=== PATIENT | female | born 1955 | race Caucasian/White ===

== ENCOUNTER 2017-08-14 19:27 | Inpatient (IN) | payer MEDICAID ==
[~2017-08-14] VITALS: Ht 170.2 cm; Wt 110.2 kg
[2017-08-14 19:27] VITALS: BP 90/65
--- NOTE | 2017-08-14 19:27 | NUR ---
PATIENT BIB BLS TO ER BED 2. Addendum: 08/14/17 at 2051 by MEDDCV PATIENT BIB ALS TO ER BED 2.
--- NOTE | 2017-08-14 19:30 | NUR ---
PER [facility] [address], [place] [address] WILL FILE APS REPORT.
--- NOTE | 2017-08-14 19:31 | NUR ---
62Y/F BIB ALS C/O N/V/D X3 DAYS. WAS GIVEN 4MG PO ZOFRAN WITH MILD RELIEF. [place] [address] WILL FILE APS REPORT. MAIAR LOWER LEG PITTING EDEMA 3+, DRY SCALEY SKIN ON MAIRA LOWER LEGS, ULCER ON LEFT FOOT, CLOSED ULCER ON LOWER LEFT CALF, PRESSURE ULCER ON SACRUM AREA; AAOX4 WITH EVEN AND STEADY GAIT; PATIENT STATES PAIN OF 0/10 AT THIS TIME; VSS; PATIENT POSITIONED FOR COMFORT; HOB ELEVATED; BEDRAILS UP X2; BED DOWN. ER MD MADE AWARE OF PT STATUS.
[2017-08-14] MEDS ORDERED: VANCOMYCIN 1,000 MG in DEXTROSE 5% 250 ML IV ONE (19:55)
[2017-08-14] MEDS ORDERED: NACL 0.9% 3,000 ML IV ONE (19:55)
[2017-08-14] MEDS ORDERED: CLINDAMYCIN 600 MG in DEXTROSE 5% 50 ML IV ONE (19:55)
[2017-08-14] MEDS ORDERED: PIPERACILLIN/TAZOBACTAM 3.375 GM in DEXTROSE 5% 50 ML IV ONE (19:55)
--- NOTE | 2017-08-14 20:00 | NUR ---
ASSISTED PRIMARY RN WITH CHANGING PATIENT.
[2017-08-14 20:19] LABS: HEMATOCRIT 26.6 % (36-48); HEMOGLOBIN 8.2 g/dL (12.0-16.0); MEAN CORPUSCULAR HEMOGLOBIN 25 pg (27-31); MEAN CORPUSCULAR HGB CONC 31 g/dL (33-37); MEAN CORPUSCULAR VOLUME 82.3 fL (80-94); PLATELET COUNT (AUTO) 103 K/uL (140-450); RED BLOOD CELL COUNT(AUTO) 3.23 MIL/uL (4.20-5.40); RED CELL DISTRIBUTION WIDTH 15.6 % (11.6-13.7); WHITE BLOOD COUNT (AUTO) 16.7 K/uL (4.8-10.8)
[2017-08-14] MEDS ORDERED: CLINDAMYCIN 600 MG/4 ML VIAL ONE (20:29)
[2017-08-14] MEDS ORDERED: PIPERACILLIN/TAZOBACTAM 3.375 GM VIAL IV ONE ×2 (20:29→20:30)
[2017-08-14] MEDS ORDERED: VANCOMYCIN 1,000 MG VIAL ONE (20:30)
--- NOTE | 2017-08-14 20:30 | NUR ---
Patient noted to have existing wounds upon arrival to ER. Photos taken of wound and placed in chart. Wound covered with dressing. Physician informed.
[2017-08-14 20:35] LABS: PROTHROMBIN TIME 14.2 secs (10.8-13.4)
[2017-08-14 20:45] LABS: ALBUMIN 0.9 g/dL (3.4-5.0); ANION GAP 19.2 (8-16); CARBON DIOXIDE 18.5 mmol/L (21-32); CREATININE 1.7 mg/dL (0.6-1.3); POTASSIUM 3.7 mmol/L (3.5-5.1); TOTAL BILIRUBIN 0.8 mg/dL (0.0-1.0)
[2017-08-14 20:47] LABS: LYMPHOCYTES % (MANUAL) 2 % (20-46); METAMYELOCYTES % 1 % (0-0); MONOCYTES % (MANUAL) 1 % (5-12); PROMYELOCYTES % 1 % (0-0)
--- NOTE | 2017-08-14 20:51 | NUR ---
XRAY AT BEDSIDE FOR INTERVENTION.
--- NOTE | 2017-08-14 21:53 | NUR ---
# 16 FR Urinary catheter inserted utilizing sterile technique. Immediate return of DARK YELLOW ml 250 urine noted. Urine sample collected and sent to lab. Pt tolerated procedure WELL.
--- NOTE | 2017-08-14 22:03 | NUR ---
PT ASSISTED TO CT BY CERTIFIED DIABETES EDUCATOR AND EMT.
[2017-08-14 22:14] LABS: BILIRUBIN,URINE 1+ (NEGATIVE); BLOOD, URINE 1+ (NEGATIVE); LEUKOCYTE ESTERASE ,URINE NEGATIVE (NEGATIVE); NITRITE, URINE NEGATIVE (NEGATIVE); PH,URINE 5.5 (5.0-9.0); UGLUCOSE TRACE (NEGATIVE)
--- NOTE | 2017-08-14 22:22 | NUR ---
PATIENT RETURN FROM CT.
[2017-08-14 22:24] LABS: APPEARANCE,URINE CLEAR (CLEAR); COLOR,URINE AMBER (YELLOW)
--- NOTE | 2017-08-14 23:20 | NUR ---
PT ON BED IN NAD, FAMILY AT BEDSIDE, NO IDENTIFIED REQUESTS AT THIS TIME.
[2017-08-15] VITALS (11 sets, daily range): BP systolic 98–110; BP diastolic 49–58
[2017-08-15 00:10] LABS: RBC,URINE 0-5 (RARE) /HPF (0-5)
[2017-08-15] MEDS ORDERED: ZOLPIDEM 5 MG TAB PO PRN (00:50)
[2017-08-15] MEDS ORDERED: HYDROcodone/APAP 5/325 MG 1 TAB TAB PO PRN (00:50)
[2017-08-15] MEDS ORDERED: LORazepam 2 MG/ML VIAL IM/IVP PRN (00:50)
[2017-08-15] MEDS ORDERED: ACETAMINOPHEN 325 MG TAB PO PRN (00:50)
[2017-08-15] MEDS ORDERED: DOCUSATE SODIUM 100 MG GELCAP PO PRN (00:50)
[2017-08-15] MEDS ORDERED: ONDANSETRON 4 MG/2 ML VIAL IM/IVP PRN (00:50)
--- NOTE | 2017-08-15 01:21 | NUR ---
REPORT GIVEN TO QUINCY BAKER
--- NOTE | 2017-08-15 01:25 | NUR ---
PATIENT RESTING AT THIS TIME. NO SIGNS OF DISTRESS.
[2017-08-15] MEDS ORDERED: DEXAMETHASONE 4 MG/ML VIAL ONE (01:30)
[2017-08-15] MEDS ORDERED: SEVOFLURANE 250 ML BTL INH ONE (01:30)
[2017-08-15] MEDS ORDERED: ONDANSETRON 4 MG/2 ML VIAL ONE (01:30)
[2017-08-15] MEDS ORDERED: PROPOFOL 200 MG/20 ML VIAL IV ONE (01:30)
[2017-08-15] MEDS ORDERED: MIDAZOLAM 2 MG/2 ML VIAL ONE (01:43)
[2017-08-15] MEDS ORDERED: fentaNYL 0.05 MG/ML VIAL ONE (01:43)
--- NOTE | 2017-08-15 01:45 | NUR ---
PATIENT TAKEN TO OR WITH MARLEY BAKER. WILL GO TO ICU AFTER.
[2017-08-15] MEDS ORDERED: HYDROGEN PEROXIDE 3% 240 ML BTL TP ONE (01:46)
[2017-08-15] MEDS ORDERED: VANCOMYCIN PER PHARMACY MC PRN (02:20)
--- NOTE | 2017-08-15 02:40 | NUR ---
PT IS BEING ADMITTED VIA GURNEY FROM ER S/P DEBRIDEMENT AND FASCIOTOMY LEFT LOWER LIMB. WILL ADMIT THE PT.
[2017-08-15] MEDS: NACL 0.9% 1,000 ML IV SCH ×3 (02:53→20:19)
[2017-08-15 03:00] LABS: BARBITURATE, URINE NEG. ng/ml (NEG <=200); BENZODIAZEPINE, URINE NEG. ng/mL (NEG <=200); CANNABINOID, URINE NEG. ng/mL (NEG <=50); COCAINE, URINE NEG. ng/mL (NEG <=300); OPIATE, URINE NEG. ng/mL (NEG <=2000); PHENCYCLIDINE SCREEN,URINE NEG. ng/mL (NEG <=25)
[2017-08-15] MEDS ORDERED: ALBUMIN HUMAN 25% 50 ML IV SCH (03:00)
--- NOTE | 2017-08-15 03:18 | NUR ---
DR. THACKER IN TO SEE PT. WILL FOLLOW UP WITH ANY ORDERS.
--- NOTE | 2017-08-15 03:20 | NUR ---
Patient will be admitted to care of DR. VACA. Admited to ICU FOR CONVENIENCE. Will go to room 1. Belongings list completed. Report to SONIA BAKER.
--- NOTE | 2017-08-15 04:00 | NUR ---
PT WAS ADMITTED FROM OR S/P DEBRIDEMENT AND FASCIOTOMY OF LEFT LOWER LEG VIA GURNEY. REPORT RECEIVED FROM SIERRA FROM OR AT BED SIDE. PT HAD GENERAL ANESTHESIA PRIOR TO THE SURGERY. LEFT LEG AND HEEL WRAPPED WITH KERLIX DRESSING WITH MODERATE SANGUINOUS DRAIN NOTED ON THE DRESSING AND ODOR PRESENT. PT AWAKE AND A&OX4 AND VERBAL. ON 3L/MIN I2 VIA SIMPLE MASK. BILATERAL LUNGS SOUND CLEAR. BOWEL SOUNDS HYPOACTIVE. PT DENIES PAIN OR DISCOMFORT. PERIPHERAL IV TO RIGHT WRIST AND LEFT AC-ALL 22G-PATENT AND ASYMPTOMATIC. VSS. AFEBRILE. REPOSITIONED FOR COMFORT. DAUGHTER, KRISTAL AT BED SIDE. THE PT WANTS US TO CALL KRISTAL FOR EMERGENCY CONTACT. PHONE NUMBER [phone]. KRISTAL IS TAKING PT'S BELONGINGS. NO BELONGINGS WILL BE LEFT HERE. WILL CONTINUE TO MONITOR.
--- NOTE | 2017-08-15 06:15 | NUR ---
MORNING CARE, COLLINS CATHETER CARE, BED BATH PROVIDED. THE LEFT LEG SURGICAL SITE DRAINING LARGE AMOUNT OF SEROSANGUINEOUS DRAINING WITH ODOR. VSS. AFEBRILE. CALL LIGHT IN REACH AND BED KEPT TO THE LOWEST POSITION. HOB ELEVATED 30 DEGREES. WILL CONTINUE TO MONITOR.
--- NOTE | 2017-08-15 07:15 | NUR ---
RECIEVED REPORT FROM XIAO SCOTT RN. PT IS ON SIMPLE FACE MASK 2L. PERRLA. PT IS A&0X4; ALERT AND AWAKE. DENIES PAIN, NAUSEA. PT HAS RIGHT AC 22 MICAH AND LEFT WRIST 22 MICAH, BOTH ASYMPTOMATIC. S1S2 HEARD. BREATH SOUNDS CLEAR BILATERALLY IN ALL LOBES. BOWEL SOUNDS ACTIVE AND PRESENT IN ALL 4 QUADRANTS. PT SKIN IS NOT INTACT; LEFT LEG IS COVERED FROM MID THIGH TO FOOT IN DRESSING FROM SURGERY; PTS WOUNDS ARE SEEPING AND DRESSING NEEDS TO BE CHANGED PER ORDER. PT HAS LEFT HEEL PRESSURE ULCER AND EXCORIATION ON BUTTOCK AREA. PT HAS COLLINS CATHETER, WITH SMALL AMOUNT OF KLEBER FLUID IN COLLECTION BAG. BED IS LOCKED, IN LOWEST POSITION WITH ALARM ON; POSITIONED FOR COMFORT. PT IS ORIENTED TO CALL LIGHT AND IT IS WITHIN REACH. WILL CLOSELY MONITOR.
--- NOTE | 2017-08-15 07:27 | NUR ---
BED SIDE REPORT GIVEN TO EMMETT FLORES NURSE FOR CONTINUITY OF CARE. VSS AND ALL SAFETY PRECAUTIONS ARE IN PLACE.
[2017-08-15] MEDS ORDERED: PNEUMOCOCCAL VACCINE 23 MCG/0.5 ML VIAL IMVAC SCH (08:20)
--- NOTE | 2017-08-15 08:30 | NUR ---
Dr. Mullins and Resident group doing rounds
[2017-08-15] MEDS ORDERED: CLINDAMYCIN 600 MG in DEXTROSE 5% 50 ML IV SCH (09:00)
[2017-08-15] MEDS ORDERED: VANCOMYCIN 1GM/DEXT 5% PREMIX 200 ML IV SCH (09:00)
[2017-08-15] MEDS ORDERED: PIPERACILLIN/TAZOBACTAM 4.5 GM in DEXTROSE 5% 100 ML IV SCH (09:00)
--- NOTE | 2017-08-15 09:00 | NUR ---
Dr. Palomares, Dr. Hansen's 3rd year resident, came to see pt. Consent for Excisional Debridement for nonviable tissue on left heel.
--- NOTE | 2017-08-15 09:45 | NUR ---
Pt is refusing breakfast saying she does not feel well enough to eat
[2017-08-15 10:04] LABS: HEMATOCRIT 22.3 % (36-48); MEAN CORPUSCULAR HEMOGLOBIN 25 pg (27-31); MEAN CORPUSCULAR HGB CONC 31 g/dL (33-37); MEAN CORPUSCULAR VOLUME 82.1 fL (80-94); PLATELET COUNT (AUTO) 66 K/uL (140-450); RED BLOOD CELL COUNT(AUTO) 2.72 MIL/uL (4.20-5.40); RED CELL DISTRIBUTION WIDTH 15.4 % (11.6-13.7); WHITE BLOOD COUNT (AUTO) 17.1 K/uL (4.8-10.8)
[2017-08-15] MEDS: PANTOPRAZOLE 40 MG TABEC PO SCH (10:05)
[2017-08-15] MEDS: PIPERACILLIN/TAZOBACTAM 4.5 GM in DEXTROSE 5% 100 ML IV SCH ×2 (10:05→16:53)
[2017-08-15] MEDS ORDERED: ALBUTEROL SULFATE/IPRATROPIU 3 ML SOL IH PRN (10:05)
[2017-08-15] MEDS: LACTOBACILLUS RHAMNOSUS GG 1 EACH CAP PO SCH (10:06)
[2017-08-15 10:09] LABS: HEMOGLOBIN 6.9 g/dL (12.0-16.0)
[2017-08-15 10:16] LABS: ALBUMIN 0.8 g/dL (3.4-5.0); ANION GAP 17.7 (8-16); POTASSIUM 3.7 mmol/L (3.5-5.1); TOTAL BILIRUBIN 0.6 mg/dL (0.0-1.0)
[2017-08-15 10:23] LABS: CREATININE 1.6 mg/dL (0.6-1.3)
[2017-08-15 10:36] LABS: MAGNESIUM 1.6 mg/dL (1.8-2.4); PHOSPHORUS 3.6 mg/dL (2.5-4.9)
[2017-08-15 10:41] LABS: BASOPHILS % (MANUAL) 0 % (0-2); EOSINOPHILS % (MANUAL) 0 % (0-4); LYMPHOCYTES % (MANUAL) 3 % (20-46); METAMYELOCYTES % 1 % (0-0); MONOCYTES % (MANUAL) 1 % (5-12)
--- NOTE | 2017-08-15 11:23 | NUR ---
Spoke with Dr. Carmen, working on transferring pt to higher level of care. Spoke with Chantell, rooming house operator, about transfer.
[2017-08-15] MEDS ORDERED: FUROSEMIDE 20 MG TAB PO SCH (12:00)
--- NOTE | 2017-08-15 12:40 | NUR ---
Pt is resting, daughter and family at bedside.
--- NOTE | 2017-08-15 12:47 | NUR ---
Pt refused lunch, did not eat any portion. says she cant eat due to her diet.
--- NOTE | 2017-08-15 13:00 | NUR ---
WOUND MEASUREMENT: L LEG LATERAL 57 CM IN LENGTH BY 6CM WIDE BY 5 CM DEEP. L LEFT MEDIAL 53 CM IN LENGTH BY 13 CM WIDE AT THE THIGH BY 4 CM DEEP. L HEEL , 4.5 CM DIAMETER, 2CM DEPTH. PRESSURE WOUND ON HEEL IS BLACK AND WITHOUT PAIN ON THE BED OF THE WOUND. AROUND THE ULCER THERE IS PINK, BLACK, RED, AND BROWN TISSUE. FOUL ODER COMING FROM WOUND SIDE. LATERAL SIDE HAS CLEAR NECROTIC, BLACK FLESH; VISIBLE MUSCLE AND ADIPOSE TISSUE. MEDIAL SIDE IS PRIMARILY ADIPOSE, MUSCLE AND BONE PRESENT (ON CALF). WET TO DRY DRESSING, CLEANED WITH NORMAL SALINE, PACKED WITH WET GAUZE AND DRY ABD PAD ON TOP. WRAPPED FROM THIGH DOWN AROUND ANKLE WITH DRY GAUZE PROTECTIVE COVERING.
[2017-08-15] MEDS ORDERED: PROMETHAZINE 25 MG/ML VIAL IM/IVP PRN (13:10)
[2017-08-15] MEDS: ACETAMINOPHEN 325 MG TAB PO SCH ×2 (13:12→16:52)
[2017-08-15] MEDS: Z-GUARD PASTE TP SCH (13:12)
--- NOTE | 2017-08-15 14:05 | NUR ---
Starting blood transfusion of one unit. TEMP: 97.5, Pulse 98, Resp 24, BP 102/52, Pain 0 Tylenol and Benadryl given prior
[2017-08-15] MEDS ORDERED: PROBIOTIC SCREEN 1 EA MISC MC PRN (16:05)
[2017-08-15] MEDS: MORPHINE SULFATE 2 MG/ML SYR IVP PRN (16:20)
[2017-08-15] MEDS: CLINDAMYCIN 600 MG in DEXTROSE 5% 50 ML IV SCH (16:52)
--- NOTE | 2017-08-15 17:00 | NUR ---
Blood finished transfusing. No reaction. Lab scheduled to check Hgb level.
--- NOTE | 2017-08-15 17:49 | NUR ---
Pt refused dinner; states she is not hungry. I have educated her throughout the day on how our bodies need nutrition to heal.
--- NOTE | 2017-08-15 18:00 | NUR ---
Dr. Paige came to see pt; spoke with patient and family.
[2017-08-15] MEDS ORDERED: NACL 0.9% 500 ML IV ONE (18:10)
[2017-08-15 18:29] LABS: HEMATOCRIT 23.9 % (36-48); HEMOGLOBIN 7.4 g/dL (12.0-16.0); MEAN CORPUSCULAR HEMOGLOBIN 26 pg (27-31); MEAN CORPUSCULAR HGB CONC 31 g/dL (33-37); PLATELET COUNT (AUTO) 58 K/uL (140-450); RED BLOOD CELL COUNT(AUTO) 2.88 MIL/uL (4.20-5.40); RED CELL DISTRIBUTION WIDTH 15.2 % (11.6-13.7); WHITE BLOOD COUNT (AUTO) 17.7 K/uL (4.8-10.8)
--- NOTE | 2017-08-15 18:50 | NUR ---
at bedside, trying to get his to eat.
--- NOTE | 2017-08-15 18:52 | NUR ---
Pt's right IV in AC is no longer working. D/C the IV.
[2017-08-15 19:07] LABS: LYMPHOCYTES % (MANUAL) 4 % (20-46); PROMYELOCYTES % 1 % (0-0)
--- NOTE | 2017-08-15 19:15 | NUR ---
gave report to OLIVIA Tolentino, for continuation of care
--- NOTE | 2017-08-15 19:20 | NUR ---
RECIEVED REPORT FROM MORNING NURSE. PT IS IN ASLEEP, AROUSABLE TO VOICE. AAO X 4, ABLE TO MAKE NEEDS KNOWN AND FOLLOW COMMANDS. DENIES PAIN AT THIS TIME. NO NAUSEA/VOMIT. BILATERAL LUNGS SOUND CLEAR, ON ROOM AIR, O2 SAT 97%. NO ACUTE RESPIRATORY DISTRESS NOTED. PT HAS PERIPHERAL IV LINE TO RIGHT WRIST 22 MICAH, ASYMPTOMATIC AND PATENT. SR ON THE MONITOR. ACTIVE BOWEL SOUND FROM ALL 4 QUADRANTS. PT SKIN IS NOT INTACT; LEFT LEG IS COVERED FROM MID THIGH TO FOOT IN DRESSING S/P DEBRIDEMENT AND FASCIOTOMY. PTS WOUNDS ARE SEEPING AND DRESSING NEEDS TO BE CHANGED PER ORDER. PT HAS LEFT HEEL PRESSURE ULCER AND EXCORIATION TO BUTTOCK AREA. PT HAS COLLINS CATHETER, WITH KLEBER COLOR URINE IN COLLECTION BAG. HOB ELEVATED 30 DEGREE, BED IN LOW POSITION, CALL LIGHT WITHIN THE REACH. WILL CONTINUE TO MONITOR.
[2017-08-15] MEDS ORDERED: MAG SULF 2000 MG/WATER PREMIX 50 ML IV SCH (19:30)
[2017-08-15] MEDS ORDERED: [UNRECOGNIZED DRUG - OTHER] IV ONE (19:30)
--- NOTE | 2017-08-15 21:25 | NUR ---
HOLD HEPARIN 5000 UNITS SQ B/C PLT COUNT 58 LOW AND PT 14.2 [address]IGH. NOTIFIED TO . DR STATED OK TO HOLD.
[2017-08-15] MEDS: VANCOMYCIN 1GM/DEXT 5% PREMIX 200 ML IV SCH (22:07)
--- NOTE | 2017-08-15 22:30 | NUR ---
ADMINISTERED SCHEDULED IV ABX ORDERED, TOLERATED WELL. NO ACUTE DISTRESS NOTED. DENIES PAIN AT THIS TIME. WILL CONTINUE TO MONITOR.
[2017-08-16] VITALS (11 sets, daily range): BP systolic 80–108; BP diastolic 41–59
--- NOTE | 2017-08-16 | NUR ---
PATIENT IS IN ASLEEP, AROUSABLE TO VOICE. DENIES PAIN AT THINS TIME. WILL CONTINUE TO MONITOR.
[2017-08-16] MEDS: PIPERACILLIN/TAZOBACTAM 4.5 GM in DEXTROSE 5% 100 ML IV SCH ×3 (00:23→16:14)
[2017-08-16] MEDS: Z-GUARD PASTE TP SCH ×2 (00:57→13:31)
[2017-08-16] MEDS: CLINDAMYCIN 600 MG in DEXTROSE 5% 50 ML IV SCH ×3 (00:57→16:13)
[2017-08-16] MEDS: MORPHINE SULFATE 2 MG/ML SYR IVP PRN ×2 (01:12→18:18)
--- NOTE | 2017-08-16 01:15 | NUR ---
PATIENT REPORTED PAIN TO LEFT LEG, 7/10, ADMINISTERED PRN MORPHINE 1MG. WILL CONTINUE TO MONITOR.
--- NOTE | 2017-08-16 01:30 | NUR ---
ADMINISTERED SCHEDULED IV ABX ORDERED, TOLERATED WELL. SR ON THE MONITOR. WILL CONTINUE TO MONITOR.
--- NOTE | 2017-08-16 03:15 | NUR ---
PATIENT IN ASLEEP, AROUSABLE TO VOICE. DENIES PAIN. NO ACUTE DISTRESS NOTED. WILL CONTINUE TO MONITOR.
[2017-08-16] MEDS: NACL 0.9% 1,000 ML IV SCH ×2 (04:39→12:59)
--- NOTE | 2017-08-16 05:00 | NUR ---
PATIENT IS IN ASLEEP, AROUSABLE TO VOICE. NO ACUTE DISTRESS NOTED. PROVIDED 1 PACK OF ORANGE JUICE. PATIENT TOLERATED WELL. WILL CONTINUE TO MONITOR.
--- NOTE | 2017-08-16 07:20 | NUR ---
RECEIVED REPORT FROM MORNING SHIFT NURSE AT BEDSIDE, PT IS AAOX4, ABLE TO FOLLOW COMMANDS AND MAKE NEEDS KNOWN, DENIES PAIN, VSS, NO S/S DISTRESS, CLEAR LUNG SOUNDS, ON O2 AT 2L VIA NC, DENIES CHEST PAIN, SR ON HOME IMPROVEMENT ADVISOR, SOFT ABDOMEN WITH ACTIVE BOWEL SOUNDS, POOR APPETITE NOTED, INCONTINENT WITH B&B'S, F/C IN PLACE WITH CLEAR YELLOW URINE DRAINING VIA GRAVITY, GENERALIZED WEAKNESS TO ALL EXTREMITIES. SKIN IS WARM AND DRY TO TOUCH, SURGICAL WOUND SITE TO LEFT LEG, COVERED WITH DRESSING, (SEE WOUND ASSESSMENT), IV SITE TO RIGHT WRIST, 22GA, RUNNING NS AT 120ML/HR. ELEVATED HOB, SAFETY MEASURES IN PLACE, CALL LIGHT WITHIN REACH, WILL CONTINUE TO MONITOR.
--- NOTE | 2017-08-16 07:20 | NUR ---
REPORT GIVEN TO MORNING NURSE FOR CONTINUITY OF CARE.
--- NOTE | 2017-08-16 09:00 | NUR ---
PT PLATELET 58, DR. GREENWOOD AND DR. VACA AWARE, OK TO GIVE HEPARIN AT 0900.
[2017-08-16] MEDS: LACTOBACILLUS RHAMNOSUS GG 1 EACH CAP PO SCH (09:10)
[2017-08-16] MEDS: PANTOPRAZOLE 40 MG TABEC PO SCH (09:10)
--- NOTE | 2017-08-16 09:10 | NUR ---
DR. VELOZ CAME IN TO SEE PT AT BEDSIDE, OPENED THE WOUND AND CHECKED WOUND SITE, ORDERED TO USE WET TO DRY DRESSING TO THE WOUND SITE, WOUND CARE PROVIDED AT THIS TIME. PT TOLERATED WELL.
--- NOTE | 2017-08-16 09:42 | NUR ---
RECEIVED ORDER FOR PATIENT TO GO TO HIGHER LEVEL OF CARE. FAXED ORDER, FACE SHEET AND H&P TO [facility] AND [facility].
[2017-08-16 10:05] LABS: ANION GAP 14.6 (8-16); CARBON DIOXIDE 21.2 mmol/L (21-32); CREATININE 1.9 mg/dL (0.6-1.3); MAGNESIUM 1.9 mg/dL (1.8-2.4); PHOSPHORUS 3.6 mg/dL (2.5-4.9); POTASSIUM 3.8 mmol/L (3.5-5.1)
[2017-08-16 10:07] LABS: BASOPHILS % (AUTO) 0.2 % (0.0-2.0); EOSINOPHILS % (AUTO) 0.2 % (0.0-4.0); HEMATOCRIT 22.5 % (36-48); HEMOGLOBIN 7.1 g/dL (12.0-16.0); LYMPHOCYTES # (AUTO) 0.9 K/uL (2.5-16.5); LYMPHOCYTES % (AUTO) 5.8 % (20.5-51.1); MEAN CORPUSCULAR HEMOGLOBIN 26 pg (27-31); MEAN CORPUSCULAR HGB CONC 31 g/dL (33-37); MEAN CORPUSCULAR VOLUME 82.6 fL (80-94); MONOCYTES # (AUTO) 0.4 K/uL (0.8-1.0); MONOCYTES % (AUTO) 2.6 % (1.7-9.3); NEUTROPHILS # (AUTO) 14.2 K/uL (1.8-7.7); NEUTROPHILS % (AUTO) 91.2 % (42.2-75.2); PLATELET COUNT (AUTO) 47 K/uL (140-450); RED BLOOD CELL COUNT(AUTO) 2.73 MIL/uL (4.20-5.40); RED CELL DISTRIBUTION WIDTH 15.5 % (11.6-13.7); WHITE BLOOD COUNT (AUTO) 15.5 K/uL (4.8-10.8)
--- NOTE | 2017-08-16 10:15 | NUR ---
PATIENT HAS BEEN SCREENED AND CATEGORIZED HIGH NUTRITION RISK. PATIENT WILL BE SEEN WITHIN 1-2 DAYS OF ADMISSION. 08/16/[address]
--- NOTE | 2017-08-16 10:29 | NUR ---
RECEIVED CALL FROM MARCELINO FROM [facility] AND GAVE HER FURTHER INFORMATION INCLUDING THE PHONE NUMBER TO ICU AND DR. VACA'S PHONE.
[2017-08-16] MEDS: VANCOMYCIN 1GM/DEXT 5% PREMIX 200 ML IV SCH (10:50)
--- NOTE | 2017-08-16 11:15 | NUR ---
DR. REYNA CAME IN TO SEE PT AT BEDSIDE, WILL FOLLOW UP WITH NEW ORDERS.
[2017-08-16] MEDS ORDERED: Vancomycin Per Pharmacy MC (11:21)
[2017-08-16] MEDS ORDERED: IPRA3AMP IH (11:21)
[2017-08-16] MEDS ORDERED: LACT10CA PO (11:21)
[2017-08-16] MEDS ORDERED: ZGUARD TP (11:21)
[2017-08-16] MEDS ORDERED: ACET-9525 PO (11:21)
[2017-08-16] MEDS ORDERED: PANT40EC28 PO (11:21)
[2017-08-16] MEDS ORDERED: ONDA2SOL45 IM/IVP (11:21)
[2017-08-16] MEDS ORDERED: HEPA500056 SUBQ (11:21)
--- NOTE | 2017-08-16 12:00 | NUR ---
NO S/S OF DISTRESS, VSS, DENIES PAIN, PT'S AT BEDSIDE, POSITION CHANGED FOR COMFORT.
--- NOTE | 2017-08-16 12:15 | NUR ---
PLAN TO VISIT PT FOR WOUND CONSULT LEFT LOWER EXTREMITY, PRIMARY RN REPORT THAT PT'S DRESSING CHANGED WITH SURGEON THIS MORNING AND WOUND CARE ORDER BY SURGEON TO CONTINUE WET TO DRY DAILY AND PLAN TO TRANSFER PT. TO [facility]. SPOKE TO DR. MARTINEZ AND ABOVE INFORMATION GIVEN, HE IS OKAY TO HAVE WOUND CONSULT TOMORROW WITH NEXT DRESSING CHANGE.
--- NOTE | 2017-08-16 13:12 | NUR ---
SPOKE ANTONIO NATH AT [facility] AND INFORMED HER THAT DR. HECTOR WILL BE ACCEPTING PHYSICIAN. SHE IS AWARE, BUT NO BEDS. I SPOKE WITH [facility] AND THEY ARE STILL WAITING TO SPEAK WITH THEIR PHYSICIAN.
--- NOTE | 2017-08-16 14:13 | NUR ---
08/16/17 RD INITIAL ASSESSMENT COMPLETED PLEASE REFER TO NUTRITION ASSESSMENT UNDER CARE ACTIVITY FOR ESTIMATED NUTRITIONAL NEEDS. 1. CONTINUE REGULAR DIET TOLERATED 2. RECOMMEND ENSURE BID AND HAYLEY BID 3. PROVIDED PATIENT WITH NUTRITION EDUCATION FOR WOUND HEALING/PRESSURE ULCERS 4. RD TO FOLLOW-UP 2-3 DAYS, HIGH RISK MARILYNN WHITT RD
--- NOTE | 2017-08-16 16:16 | NUR ---
SPOKE WITH PHAM AT [facility] AND INFORMED HER THAT PATIENT IS NOW ON TELEMETRY STATUS. SHE IS STILL LOOKING FOR TELEMETRY BED. TOLD HER CALL ICU IF BED BECOMES AVAILABLE. I CALLED [facility] AND SPOKE WITH KRISTAL. I INFORMED HER THAT THE PATIENT IS ON TELEMETRY STATUS, BUT STILL IN ICU. SHE SAID THEY HAVE ACCEPTED THE PATIENT UNDER ORTHO, DR. GALEAS., WAITING FOR A BED. I TOLD HER IF A BED BECOMES AVAILABLE TO CALL ICU, .
--- NOTE | 2017-08-16 19:15 | NUR ---
TRANSFERRED PT TO ROOM 107A VIA BED, REPORT GIVEN TO CHIEF PHYSICAL THERAPIST NURSE FOR CONTINUE OF CARE AT BEDSIDE, PT IS IN STABLE CONDITION AT THIS TIME, FAMILY MEMBERS AT BEDSIDE.
--- NOTE | 2017-08-16 20:40 | NUR ---
TALKED TO DR ARREDONDO REGARDING DUE HEPARIN SUB-Q WITH PLATELET TRENDING DOWN TO 47 TODAY, PER DR ARREDONDO TO HOLD THE HEPARIN DOSE TONIGHT, BP RECHECKED 102/51, HR-81, PT SLEEPING AT THIS TIME, MONITORED CLOSELY.
[2017-08-16] MEDS ORDERED: SODIUM CHLORIDE FLUSH 10 ML SYR IVF SCH (21:00)
[2017-08-16] MEDS ORDERED: NACL 0.9% 500 ML IV ONE (22:35)
--- NOTE | 2017-08-16 22:40 | NUR ---
[facility] BED COORDINATOR CALLED THAT THERE IS AVAILABLE BED FOR THIS PT AT UNIT 1200 ROOM 4 BED 1, ADMITTING DOCTOR IS DR TOYA GALEAS AND TO CALL REPORT TO #[phone], DR ARREDONDO MADE AWARE.
--- NOTE | 2017-08-16 23:10 | NUR ---
WET TO DRY DRESSING CHANGE DONE TO LEFT LEG, KRISTAL BRADY (DAUGHTER) MADE AWARE OF [facility].
--- NOTE | 2017-08-16 23:49 | NUR ---
REPORT GIVEN TO SNEHA BAKER #[phone], LATEST BP-90/50, HR-80, SAT-96% ON O2 1L/NC.
[2017-08-17] VITALS: BP 90/50
[2017-08-17] MEDS: PIPERACILLIN/TAZOBACTAM 4.5 GM in DEXTROSE 5% 100 ML IV SCH ×2
--- NOTE | 2017-08-17 00:25 | NUR ---
PT SLEEPING, EASILY AROUSABLE, VERBALLY RESPONSIVE, NO DISTRESS NOTED, [facility] TRANSPORT HERE, IV [place], TRANSFERRED IN STABLE CONDITION TO [facility] FOR HIGHER LEVEL OF CARE.
[2017-08-17 06:21] LABS: T3 UPTAKE 35 % (24-39); T4 (THYROXINE) 2.7 ug/dL (4.5-12.0)
[2017-08-19 15:15] LABS: MAGNESIUM 2.1 mg/dL (1.8-2.4); PHOSPHORUS 6.5 mg/dL (2.5-4.9); THYROID STIMULATING HORMONE 1.6 uIU/mL (0.34-3.74)
[2017-08-19 15:30] LABS: CHOL/HDL RATIO 8.3 (1-4.5)
[2017-08-20 10:21] LABS: TRANSFERRIN 74 mg/dL (200-370)
[2017-08-20 10:23] LABS: FERRITIN 671 ng/mL (15-150)
== END 2017-08-17 00:25 | disposition short-term general hospital (02) | DRG 710 ==
LOC: MED 19:27 → MIC 08-15 00:46 → MTU 08-16 19:24
PROVIDERS: ADMIT General Practice; ATTEND General Practice
PROC: 0KNR0ZZ Release Left Upper Leg Muscle, Open Approach (ICD-10-PCS; 2017-08-15)
PROC: 0KNR0ZZ Release Left Upper Leg Muscle, Open Approach (ICD-10-PCS; 2017-08-15)
PROC: 0KNR0ZZ Release Left Upper Leg Muscle, Open Approach (ICD-10-PCS; 2017-08-15)
PROC: 0KNR0ZZ Release Left Upper Leg Muscle, Open Approach (ICD-10-PCS; 2017-08-15)
PROC: 30233N1 Transfusion of Nonautologous Red Blood Cells into Peripheral Vein, Percutaneous Approach (ICD-10-PCS; 2017-08-15)
PROC: 0JBM0ZZ Excision of Left Upper Leg Subcutaneous Tissue and Fascia, Open Approach (ICD-10-PCS; principal; 2017-08-15 01:30)
DX: A41.9 Sepsis, unspecified organism (principal); N17.0 Acute kidney failure with tubular necrosis; I21.4 Non-ST elevation (NSTEMI) myocardial infarction; M72.6 Necrotizing fasciitis; E43 Unspecified severe protein-calorie malnutrition; I50.43 Acute on chronic combined systolic (congestive) and diastolic (congestive) heart failure; L89.624 Pressure ulcer of left heel, stage 4; M00.9 Pyogenic arthritis, unspecified; E87.1 Hypo-osmolality and hyponatremia; D69.6 Thrombocytopenia, unspecified; E86.0 Dehydration; D64.9 Anemia, unspecified; R65.20 Severe sepsis without septic shock; E66.9 Obesity, unspecified; Z68.31 Body mass index [BMI] 31.0-31.9, adult; M81.0 Age-related osteoporosis without current pathological fracture; L03.116 Cellulitis of left lower limb; N18.9 Chronic kidney disease, unspecified; I25.10 Atherosclerotic heart disease of native coronary artery without angina pectoris; Z74.01 Bed confinement status; M86.9 Osteomyelitis, unspecified
CPT/HCPCS: 36415; 36600; 51702; 71045; 73501; 73562; 73590; 73630; 73700; 76700; 80048; 80053; 80202; 80305; 81001; 82150; 82550; 82607; 82728; 82746; 82803; 82948; 83036; 83540; 83605; 83690; 83735; 83880; 84100; 84134; 84436; 84443; 84479; 84484; 85025; 85045; 85610; 85651; 85730; 86140; 86886; 86900; 86901; 86920; 87040; 87070; 87075; 87081; 87086; 87205; 88304; 90732; 93005; 96365; 96366; 96367; 99291; J1100; J1644; J2250; J2270; J2405; J2543; J2704; J3010; J3370; J3490; J7030; J7060; P9016; P9046; Q0092; Q0163